=== PATIENT | male | born 1940 | race Caucasian/White ===

== ENCOUNTER → 2019-08-15 | Outpatient (CLI) | payer MEDICARE, SELFPAY ==
[2016-11-20 10:44] VITALS: BMI 23.9
[2019-08-15 12:45] LABS: Cholesterol 199 mg/dL (200); Glucose 99 mg/dL (74-106); High Density Lipoprotein 68 mg/dL; Triglycerides 75 mg/dL; Very Low Density Lipoprotein 15 mg/dL (5-40)
== END | disposition home or self-care (01) ==
PROVIDERS: Visit Provider Family Medicine
DX: Z82.49 Family history of ischemic heart disease and other diseases of the circulatory system (principal)
CPT/HCPCS: 36415; 80061; 82947

== ENCOUNTER → 2020-04-18 09:44 | Outpatient (CLI) | payer MEDICARE, SELFPAY ==
[2016-11-20 10:44] VITALS: BMI 23.9
[2020-04-18 12:25] LABS: Absolute Lymphocyte Count 1.24 X10^3/uL (0.83-4.51); Absolute Neutrophil Count 2.4 X10^3/uL (2.0-7.7); Basophil# 0.04 X10^3/uL; Eosinophil# 0.09 X10^3/uL; Eosinophils% 2.2 % (0-5); Hematocrit 40.8 % (40-54); Hemoglobin 13.1 g/dL (13.0-16.5); Lymphocyte # 1.24 X10^3/ul (4.0); Lymphocyte % 30.5 % (19-41); Mean Corp Hgb Conc 32.1 g/dL (32-36); Mean Corpuscular Hgb 31.1 pg (27.0-32.0); Mean Corpuscular Volume 96.9 fL (80-94); Mean Platelet Vol. 11.9 fl (6.2-12.0); Monocyte# 0.28 X10^3/uL; Monocyte% 6.9 % (0-10); NRBC Flagged by Analyzer 0 % (0-5); Neutrophil % 59.2 % (47-70); Platelet Count 197 K/mm3 (150-450); RBC Distribution Width CV 13.4 % (11.6-14.6); Red Blood Count 4.21 M/mm3 (4.6-6.2); White Blood Count 4.1 K/mm3 (4.4-11.0)
[2020-04-18 13:25] LABS: AST(SGOT) 15 U/L (15-37); Alanine Aminotransfer ALT/SGPT 17 U/L (16-61); Albumin, Serum 3.6 g/dL (3.2-5.0); Alkaline Phosphatase 60 U/L (45-117); Anion Gap 4 (5-15); BUN 16 mg/dL (7-18); BUN/Creat Ratio 16.5 RATIO (10-20); Calcium,Total 8.6 mg/dL (8.5-10.1); Chloride 105 mmol/L (98-107); Creatinine, Serum 0.97 mg/dL (0.70-1.30); EST Glomerular Filtration Rate 80 mL/min (>60); Est Glom Filt Rate - Afr Amer 96 mL/min (>60); Globulin 3.5 g/dL (2.2-4.2); Glucose 74 mg/dL (74-106); PSA,Total - Annual Screen 2.62 ng/mL (0.00-4.00); Potassium 4.5 mmol/L (3.5-5.1); Protein, Total 7.1 g/dL (6.4-8.2); Sodium Level 137 mmol/L (136-145); T4 Free Direct 1.02 ng/dL (0.76-1.46); Thyroid Stim Hormone (TSH) 1.62 uIU/mL (0.358-3.74)
[2020-04-20 00:03] LABS: Hemoglobin A1c 5.5 % (3.8-5.6)
== END ==
PROVIDERS: PCP Family Medicine; Visit Provider Family Medicine
DX: R63.4 Abnormal weight loss (principal); Z12.5 Encounter for screening for malignant neoplasm of prostate; Z86.718 Personal history of other venous thrombosis and embolism
CPT/HCPCS: 36415; 80053; 83036; 84153; 84439; 84443; 85025; G0103

== ENCOUNTER 2020-05-30 05:20 | Day surgery (SDC) | payer MEDICARE, SELFPAY ==
[2020-05-24 08:30] VITALS: BMI 22.4
[2020-05-30] VITALS (7 sets, daily range): BP systolic 99–119; BP diastolic 60–70; PULSE 63–71; RESP 16–18; TEMP 36.3–36.8; O2SAT 97–100; BMI 23.5
--- NOTE | 2020-05-30 05:30 | EKG12_ITS ---
Test Reason : PRE OP Blood Pressure : / mmHG Vent. Rate : 065 BPM Atrial Rate : 065 BPM P-R Int : 172 ms QRS Dur : 104 ms QT Int : 404 ms P-R-T Axes : 057 072 062 degrees QTc Int : 420 ms Normal sinus rhythm Normal ECG No previous ECGs available Confirmed by NORA MARKHAM, LAURA ([id number]), news copy editor CHALO ELLER ([id number]) on 06/01/2020 11:31:24 AM Referred By: Curtis Mchugh Confirmed By:LAURA MELENDEZ MD
--- NOTE | 2020-05-30 05:31 | HP.PCM_ITS ---
Problem List (1) Rectal bleeding Status: Acute (2) Weight loss Status: Acute History and Physical Date of Admission: 05/30/20 Intake Visit Reasons: RIGHT INGUINAL HERNIA Chief Complaint: right inguinal hernia Home Health Occupational Therapist Required: No Is patient in pain?: No Allergies No Known Allergies Allergy (Verified 05/24/20 08:32) Medications tamsulosin 0.4 mg capsule 0.4 mg PO DAILY #30 cap 05/24/20 [Rx Confirmed 05/24/20] [facility] Medical History (Updated 05/24/20 @ 09:[address] Ap Woodruff MD) Rectal bleeding (Acute) Weight loss (Acute) Hemorrhoid (Acute) Right inguinal hernia (Acute) DVT (deep venous thrombosis) (Acute ~2003) Osteoarthritis (Acute) Surgical History History of circumcision (Acute) History of vasectomy (Acute) History of meniscectomy of right knee (Acute) History of bilateral cataract extraction (Acute) Family History (Updated 05/24/20 @ 08:33 by Yokasta Crowe) Mother Deepti Gehrig disease Sister Heart disease Myocardial infarction Brother Myocardial infarction Heart disease Father Cancer bone Social History (Updated 05/24/20 @ 09:[address] Ap Woodruff MD) Smoking Status: Former smoker HPI HPI HPI: SEBASTIEN TSAI, is a 79 M who presents to the office today for who is referred by Dr. Curtis Mchugh today for surgical consultation regarding 2 separate issues. 1 is an episode of acute rectal bleeding and the second is a newly symptomatic suspected right inguinal hernia. A written copy of my surgical consult and recommendations will return to Dr. Curtis Mchugh Mr. Tsai is a very pleasant 79-year-old gentleman. For about 3 weeks he has noticed a tenderness and bulge in the right groin area. It is also of note that he is recently had an episode of rectal bleeding. He has never had a colonoscopy. He notes couple months ago over a 1 month period of time he had a 15 pound weight loss of undetermined etiology. He states that he is stabilized since that time. He denies indigestion or history of peptic ulcer disease. He denies abdominal pain albeit for the pressure sensation of the right lower quadrant directly where there is a inguinal bulge. He denies family history of colon cancer or colon polyps. He states that he otherwise enjoys very good health. He has had a remote right lower extremity deep venous thrombosis that occurred postoperatively after right knee implant. He has not had any additional problems since that time. He remains very active and enjoys a good quality of life. He has nocturia sometimes 1-3 times nightly. HPI HPI HPI: SEBASTIEN TSAI, is a 79 M who presents to the office today for ROS General General: No weight change, appetite, fatigue, colon cancer, breast cancer or weakness HEENT HEENT: No difficulty swallowing, eye injury, eye surgery, swollen glands or hoarseness Endo Endocrine: No thyroid disease, diabetes mellitus, thyroid cancer, Hair loss, heat intolerance or cold intolerance Cardio Cardiovascular: No murmur, pacemaker, heart disease, atrial fibrillation, high blood pressure, heart attack, heart stent, palpitations, shortness of breat with exertion or chest pain Psych Psychiatric: No depression, anxiety or hearing voices Resp Respiratory: No shortness of breath, No sleep apnea, No cough, No COPD, No asthm a, No emphysema, No wheezing Gastro Gastrointestinal: Yes abdominal pain, No nausea or vomiting, No diarrhea, No constipation, No blood in stool, No acid reflux, Yes hemorrhoids, No ulcers, No gallbladder problem, No black,tarry stools [place] Hematologic: No blood thinners, No blood disorders, No bleeding, No anemia, No blood clots Neuro Neurologic: No weakness Exam Const General: cooperative, healthy appearing, comfortable, no acute distress Nutritional Appearance: underweight Orientation: alert, awake Other: Patient appears to have had significant weight loss. His pant belt is tightened and closed seem loose on him HENMT Head: normal to inspection Eyes General: appearance normal, both eyes and all related structures Resp Effort & Inspection: normal respiratory effort Auscultation: clear to auscultation bilaterally Cardio Rate: regular rate Rhythm: regular rhythm Heart Sounds: no murmurs GI Palpation: soft, no hepatosplenomegaly Other: No hepatosplenomegaly, no focal tenderness, normal bowel sounds, not pulsatile or expansile Other: Testicles are descended, no mass, slight tenderness of the right testicle however, right groin bulge seen best with upright posture. Tenderness to palpation of the area but reducibility Musc Cervical Spine: normal cervical lordosis Skin General: no rashes or lesions noted Neuro Cognition: normal cognition Extrem Other: Mild varicose changes right lower extremity Psych Affect: normal affect Assessment & Plan Problems 1. Right inguinal hernia K40.90 2. Weight loss R63.4 3. Rectal bleeding K62.5 Plan Very pleasant 79-year-old gentleman. 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 Issues at hand include what appears to be recently significant weight loss of 15 pounds without etiology. Single episode of rectal bleeding felt to be possibly secondary to hemorrhoids but no previous history of colonoscopy. Right inguinal hernia and right groin tenderness noted even when the patient is at rest and sitting. I recommend him a colonoscopy with possible biopsy or polypectomy as indicated and I discussed technique, benefit, risk and alternatives. Subsequent to that I recommend him a laparoscopic right inguinal hernia repair with mesh. He has a very high quality of life and I believe that this will maximize at benefit. In addition he is aware of technique, benefit, risk of alternatives. No guarantees of success of been offered. Because of his nocturia I recommend initiating tamsulosin 0.4 mg orally nightly. This will be initiated preoperatively. We additionally discussed COVID-19. Currently the [facility] still reporting a relatively low local incidence. I anticipate outpatient treatment for the patient on both colonoscopy and the laparoscopic right inguinal herniorrhaphy. He has had an opportunity to ask and have questions answered. We will proceed with trying to assist with identifying a potential source for otherwise unexplained weight loss as well as identifying potential source for rectal bleeding and then subsequently repairing a symptomatic right inguinal hernia. Copy: Dr. Curtis Woodruff M.D., F.A.C.S. Orders Orders: Colonoscopy Today Medications New: tamsulosin (Flomax) 0.4 mg PO DAILY 30 caps 0RF Coding Level of Care Code 61764 Diagnoses Right inguinal hernia K40.90 Weight loss R63.4 Rectal bleeding K62.5 I have re-examined the patient. There are no clinical changes since date of exam. Procedure Criteria Procedure Type: Elective COVID Risk Discussion: The surgeon/proceduralist and patient have discussed in detail the risk of exposure to and/or potential harm posed by the COVID-19 virus with having a surgery/procedure at this time versus the risk of delaying the surgery/procedure. It is not possible to know either the risk of delaying the surgery or procedure or chance of getting an infection with perfect accuracy, but a joint decision was made between the patient and the surgeon/proceduralist to proceed at this time with the scheduled surgery/procedure as indicated on the consent form.
[2020-05-30] MEDS: Lactated Ringers 1,000 ML 100 ML IV (06:03)
--- NOTE | 2020-05-30 06:30 | COLBX_PTH ---
PATIENT: SEBASTIEN SAMAYOA LOC: EN U#:[id number] AGE/SX: 79/M ROOM: RE05/30/[address]: Dr. Ap Woodruff MD : 1940 BED: DIS: 05/30/2020 SPEC #: [id number] RECD: 05/30/20 12:13 STATUS: BHAVANI CHEKO #: [id number] SHAHRAM: 05/30/20 06:[address]: Ap Woodruff DEPT: SURGICAL PATHOLOGY RECD BY: Selma Baca ENTERED: 05/30/20 13:34 SP TYPE: COLON BX CLEMENT DR: Dr. Curtis Mchugh MD Tissues: A - Transverse colon B - Descending colon Procedures: Surgery Specimen Level IV HEADER OPERATION: Colonoscopy (MAC) PRE-OP DIAGNOSIS: Rectal bleeding TISSUE SUBMITTED: A - Mid transverse polyp, B - Descending polyp MICROSCOPIC DIAGNOSIS A. Mid transverse colon polyp, biopsy: Fragments of tubular adenoma. B. Descending colon polyp, biopsy: Tubular adenoma. Fragments of fecal material. NICHOLAS:gustavo 06/01/20 MICROSCOPIC DESCRIPTION Slides are reviewed. GROSS DESCRIPTION A - Received in fixative is one container labeled with the patient's name and designated mid transverse polyp. The specimen consists of multiple irregular fragments of light flores soft tissue that in aggregate measure 1.5 x 1 x 0.3 cm. The specimen is totally submitted in one cassette. B - Received in fixative is one container labeled with the patient's name and designated descending polyp. The specimen consists of a piece of flores-pink polyp measuring 0.5 x 0.5 x 0.3 cm. Multiple fragments of fecal material are also noted. The entire specimen is submitted in one cassette. / NICHOLAS:gustavo 05/31/20 TC:1 CPT: 28111 x2
--- NOTE | 2020-05-30 06:57 | OP.COLON_ITS ---
Patient Name: Salazar Tsai Procedure Date: 05/30/2020 6:14 AM Date of : 1940 Age: 79 Procedure: Colonoscopy Indications: Rectal bleeding Providers: Ap Woodruff MD Referring MD: Curtis Mchugh Medicines: See the Anesthesia note for documentation of the administered medications Patient Profile: Last Colonoscopy: none. The patient's first colonoscopy is today. Complications: No immediate complications. Procedure: Pre-Anesthesia Assessment: - Prior to the procedure, a History and Physical was performed, and patient medications and allergies were reviewed. The patient's tolerance of previous anesthesia was also reviewed. The risks and benefits of the procedure and the sedation options and risks were discussed with the patient. All questions were answered, and informed consent was obtained. Prior Anticoagulants: The patient has taken no previous anticoagulant or antiplatelet agents. ASA Grade Assessment: II - A patient with mild systemic disease. After reviewing the risks and benefits, the patient was deemed in satisfactory condition to undergo the procedure. After I obtained informed consent, the scope was passed under direct vision. Throughout the procedure, the patient's blood pressure, pulse, and oxygen saturations were monitored continuously. The colonoscope was introduced through the anus and advanced to the cecum, identified by appendiceal orifice and ileocecal valve. The colonoscopy was performed without difficulty. The patient tolerated the procedure well. The quality of the bowel preparation was good. The ileocecal valve and the appendiceal orifice were photographed. Scope In: 6:28:49 AM Scope Withdrawal Time 0 hours 12 minutes 39 seconds Scope Out: 6:50:02 AM Total Procedure Duration Time 0 hours 21 minutes 13 seconds Findings: The digital rectal exam findings include non-thrombosed internal hemorrhoids and internal hemorrhoids that prolapse with straining, but require manual replacement into the anal canal (Grade III). Pertinent negatives include normal prostate (size, shape, and consistency). A 9 mm polyp was found in the mid transverse colon. The polyp was semi-sessile. The polyp was removed with a hot snare. Resection and retrieval were complete. A 8 mm polyp was found in the descending colon. The polyp was semi-sessile. The polyp was removed with a hot snare. Resection and retrieval were complete. Multiple diverticula were found in the sigmoid colon and descending colon. The colon (entire examined portion) was moderately tortuous. Advancing the scope required using manual pressure. Impression: - Non-thrombosed internal hemorrhoids and internal hemorrhoids that prolapse with straining, but require manual replacement into the anal canal (Grade III) found on digital rectal exam. - One 9 mm polyp in the mid transverse colon, removed with a hot snare. Resected and retrieved. - One 8 mm polyp in the descending colon, removed with a hot snare. Resected and retrieved. - Diverticulosis in the sigmoid colon and in the descending colon. - Tortuous colon. Recommendation: - Discharge patient to home. - Resume previous diet. - Continue present medications. - Repeat colonoscopy in 5 years for surveillance based on pathology results. - Telephone my office for pathology results in 1 week. Procedure Code(s): --- Professional --- 67664, Colonoscopy, flexible; with removal of tumor(s), polyp(s), or other lesion(s) by snare technique Diagnosis Code(s): --- Professional --- K64.2, Third degree hemorrhoids D12.3, Benign neoplasm of transverse colon (hepatic flexure or splenic flexure) D12.4, Benign neoplasm of descending colon K62.5, Hemorrhage of anus and rectum K57.30, Diverticulosis of large intestine without perforation or abscess without bleeding Q43.8, Other specified congenital malformations of intestine CPT copyright 2017 [employer]. All rights reserved. The codes documented in this report are preliminary and upon shagger review may be revised to meet current compliance requirements. Ap Woodruff MD 05/30/2020 6:57:04 AM This report has been signed electronically. Number of Addenda: 0 Note Initiated On: 05/30/2020 6:14 AM
--- NOTE | 2020-05-30 06:57 | OP.CCLET_ITS ---
05/30/2020 Curtis Mchugh Re : Colonoscopy procedure for Salazar Jamesmaegan Mchugh This procedure was performed on Saturday, May 30, 2020. My impressions and recommendations are as follows: Impressions : - Non-thrombosed internal hemorrhoids and internal hemorrhoids that prolapse with straining, but require manual replacement into the anal canal (Grade III) found on digital rectal exam. - One 9 mm polyp in the mid transverse colon, removed with a hot snare. Resected and retrieved. - One 8 mm polyp in the descending colon, removed with a hot snare. Resected and retrieved. - Diverticulosis in the sigmoid colon and in the descending colon. - Tortuous colon. Recommendations : - Discharge patient to home. - Resume previous diet. - Continue present medications. - Repeat colonoscopy in 5 years for surveillance based on pathology results. - Telephone my office for pathology results in 1 week. My findings are described in the full procedure note, which is enclosed. If I can be of further assistance, please feel free to contact me at Doctor phone number(s): Work: . Sincerely, Ap Woodruff MD 05/30/2020 6:57:04 AM This report has been signed electronically.
== END 2020-05-30 08:06 | disposition home or self-care (01) ==
LOC: EN 05:20 → AC 05:21
PROVIDERS: PCP Family Medicine; Referring Provider Family Medicine; Visit Provider Surgery
PROC: 0DJD8ZZ Inspection of Lower Intestinal Tract, Via Natural or Artificial Opening Endoscopic (ICD-10-PCS; CPT 45378; principal; 2020-05-30 06:25)
DX: D12.3 Benign neoplasm of transverse colon (principal); D12.4 Benign neoplasm of descending colon; K57.30 Diverticulosis of large intestine without perforation or abscess without bleeding; K64.2 Third degree hemorrhoids; K40.90 Unilateral inguinal hernia, without obstruction or gangrene, not specified as recurrent; M19.90 Unspecified osteoarthritis, unspecified site; Z87.891 Personal history of nicotine dependence; Z79.899 Other long term (current) drug therapy; Z86.718 Personal history of other venous thrombosis and embolism; Z20.828 Contact with and (suspected) exposure to other viral communicable diseases
CPT/HCPCS: 45385; 87426; 88305; 93005; C9803; J7120; J2405

== ENCOUNTER 2020-06-04 07:28 | Day surgery (SDC) | payer MEDICARE, SELFPAY ==
[2020-05-24 08:30] VITALS: BMI 22.4
[2020-05-30 05:46] VITALS: BMI 23.5
[2020-05-30 08:19] LABS: Hematocrit 36.3 % (40-54); Hemoglobin 11.6 g/dL (13.0-16.5); Mean Corpuscular Hgb 30.9 pg (27.0-32.0); Mean Corpuscular Volume 96.5 fL (80-94); Mean Platelet Vol. 10.9 fl (6.2-12.0); Platelet Count 157 K/mm3 (150-450); RBC Distribution Width CV 13.3 % (11.6-14.6); RBC Distribution Width SD 48.1 fl (35.1-43.9); Red Blood Count 3.76 M/mm3 (4.6-6.2); White Blood Count 3.7 K/mm3 (4.4-11.0)
[2020-05-30 08:35] LABS: Anion Gap 3 (5-15); BUN 10 mg/dL (7-18); BUN/Creat Ratio 10.1 RATIO (10-20); Calcium,Total 8.7 mg/dL (8.5-10.1); Chloride 106 mmol/L (98-107); Creatinine, Serum 0.99 mg/dL (0.70-1.30); EST Glomerular Filtration Rate 78 mL/min (>60); Est Glom Filt Rate - Afr Amer 94 mL/min (>60); Glucose 102 mg/dL (74-106); Potassium 4.1 mmol/L (3.5-5.1); Sodium Level 138 mmol/L (136-145)
[2020-06-04] VITALS (7 sets, daily range): BP systolic 114–132; BP diastolic 56–77; PULSE 61–77; RESP 14–18; TEMP 36.1–36.8; O2SAT 96–100; BMI 23.8
[2020-06-04] MEDS: Lactated Ringers 1,000 ML 100 ML IV ×2 (08:19→10:15)
--- NOTE | 2020-06-04 08:39 | HP.PCM_ITS ---
Problem List (1) Right inguinal hernia Status: Acute History and Physical Date of Admission: 06/04/20 Intake Visit Reasons: RIGHT INGUINAL HERNIA Chief Complaint: right inguinal hernia Distributor Of Directories Required: No Is patient in pain?: No Allergies No Known Allergies Allergy (Verified 05/24/20 08:32) Medications tamsulosin 0.4 mg capsule 0.4 mg PO DAILY #30 cap 05/24/20 [Rx Confirmed 05/24/20] [facility] Medical History (Updated 05/24/20 @ 09:[address] Ap Woodruff MD) Rectal bleeding (Acute) Weight loss (Acute) Hemorrhoid (Acute) Right inguinal hernia (Acute) DVT (deep venous thrombosis) (Acute ~2003) Osteoarthritis (Acute) Surgical History History of circumcision (Acute) History of vasectomy (Acute) History of meniscectomy of right knee (Acute) History of bilateral cataract extraction (Acute) Family History (Updated 05/24/20 @ 08:33 by Yokasta Crowe) Mother Deepti Gehrig disease Sister Heart disease Myocardial infarction Brother Myocardial infarction Heart disease Father Cancer bone Social History (Updated 05/24/20 @ 09:[address] Ap Woodruff MD) Smoking Status: Former smoker HPI HPI HPI: SEBASTIEN TSAI, is a 79 M who presents to the office today for who is referred by Dr. Curtis Mchugh today for surgical consultation regarding 2 separate issues. 1 is an episode of acute rectal bleeding and the second is a newly symptomatic suspected right inguinal hernia. A written copy of my surgical consult and recommendations will return to Dr. Curtis Mchugh Mr. Tsai is a very pleasant 79-year-old gentleman. For about 3 weeks he has noticed a tenderness and bulge in the right groin area. It is also of note that he is recently had an episode of rectal bleeding. He has never had a colonoscopy. He notes couple months ago over a 1 month period of time he had a 15 pound weight loss of undetermined etiology. He states that he is stabilized since that time. He denies indigestion or history of peptic ulcer disease. He denies abdominal pain albeit for the pressure sensation of the right lower quadrant directly where there is a inguinal bulge. He denies family history of colon cancer or colon polyps. He states that he otherwise enjoys very good health. He has had a remote right lower extremity deep venous thrombosis that occurred postoperatively after right knee implant. He has not had any additional problems since that time. He remains very active and enjoys a good quality of life. He has nocturia sometimes 1-3 times nightly. HPI HPI HPI: SEBASTIEN TSAI, is a 79 M who presents to the office today for ROS General General: No weight change, appetite, fatigue, colon cancer, breast cancer or weakness HEENT HEENT: No difficulty swallowing, eye injury, eye surgery, swollen glands or hoarseness Endo Endocrine: No thyroid disease, diabetes mellitus, thyroid cancer, Hair loss, heat intolerance or cold intolerance Cardio Cardiovascular: No murmur, pacemaker, heart disease, atrial fibrillation, high blood pressure, heart attack, heart stent, palpitations, shortness of breat with exertion or chest pain Psych Psychiatric: No depression, anxiety or hearing voices Resp Respiratory: No shortness of breath, No sleep apnea, No cough, No COPD, No asthma, No emphysema, No wheezing Gastro Gastrointestinal: Yes abdominal pain, No nausea or vomiting, No diarrhea, No constipation, No blood in stool, No acid reflux, Yes hemorrhoids, No ulcers, No gallbladder problem, No black,tarry stools [place] Hematologic: No blood thinners, No blood disorders, No bleeding, No anemia, No blood clots Neuro Neurologic: No weakness Exam Const General: cooperative, healthy appearing, comfortable, no acute distress Nutritional Appearance: underweight Orientation: alert, awake Other: Patient appears to have had significant weight loss. His pant belt is tightened and closed seem loose on him HENMT Head: normal to inspection Eyes General: appearance normal, both eyes and all related structures Resp Effort & Inspection: normal respiratory effort Auscultation: clear to auscultation bilaterally Cardio Rate: regular rate Rhythm: regular rhythm Heart Sounds: no murmurs GI Palpation: soft, no hepatosplenomegaly Other: No hepatosplenomegaly, no focal tenderness, normal bowel sounds, not pulsatile or expansile Other: Testicles are descended, no mass, slight tenderness of the right testicle however, right groin bulge seen best with upright posture. Tenderness to p alpation of the area but reducibility Musc Cervical Spine: normal cervical lordosis Skin General: no rashes or lesions noted Neuro Cognition: normal cognition Extrem Other: Mild varicose changes right lower extremity Psych Affect: normal affect Assessment & Plan Problems 1. Right inguinal hernia K40.90 2. Weight loss R63.4 3. Rectal bleeding K62.5 Plan Very pleasant 79-year-old gentleman. 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 Issues at hand include what appears to be recently significant weight loss of 15 pounds without etiology. Single episode of rectal bleeding felt to be possibly secondary to hemorrhoids but no previous history of colonoscopy. Right inguinal hernia and right groin tenderness noted even when the patient is at rest and sitting. I recommend him a colonoscopy with possible biopsy or polypectomy as indicated and I discussed technique, benefit, risk and alternatives. Subsequent to that I recommend him a laparoscopic right inguinal hernia repair with mesh. He has a very high quality of life and I believe that this will maximize at benefit. In addition he is aware of technique, benefit, risk of alternatives. No guarantees of success of been offered. Because of his nocturia I recommend initiating tamsulosin 0.4 mg orally nightly. This will be initiated preoperatively. We additionally discussed COVID-19. Currently the [facility] still reporting a relatively low local incidence. I anticipate outpatient treatment for the patient on both colonoscopy and the laparoscopic right inguinal herniorrhaphy. He has had an opportunity to ask and have questions answered. We will proceed with trying to assist with identifying a potential source for otherwise unexplained weight loss as well as identifying potential source for rectal bleeding and then subsequently repairing a symptomatic right inguinal hernia. Copy: Dr. Curtis Woodruff M.D., F.A.C.S. Orders Orders: Colonoscopy Today Medications New: tamsulosin (Flomax) 0.4 mg PO DAILY 30 caps 0RF Coding Level of Care Code 83651 Diagnoses Right inguinal hernia K40.90 Weight loss R63.4 Rectal bleeding K62.5 The patient has successfully undergone a colonoscopy. 2 small tubular adenomas were removed. Grade 3 internal hemorrhoids identified and likely the source of the patient's rectal bleeding. They were fortunately not bleeding at the time of this colonoscopy. The patient presents now for a laparoscopic right inguinal hernia repair with mesh. His health has remained constant. He is aware of technique, benefit, risk, alternatives. He has had an opportunity to ask and have questions answered. We will proceed as noted. Ap Woodruff M.D., F.A.C.S. Procedure Criteria Procedure Type: Elective COVID Risk Discussion: The surgeon/proceduralist and patient have discussed in detail the risk of exposure to and/or potential harm posed by the COVID-19 virus with having a surgery/procedure at this time versus the risk of delaying the surgery/procedure. It is not possible to know either the risk of delaying the surgery or procedure or chance of getting an infection with perfect accuracy, but a joint decision was made between the patient and the surgeon/proceduralist to proceed at this time with the scheduled surgery/procedure as indicated on the consent form.
[2020-06-04] MEDS: Cefazolin 2 GM in 0.9% Normal Saline 100 ML IV (09:14)
--- NOTE | 2020-06-04 09:40 | HERN_PTH ---
PATIENT: SEBASTIEN SAMAYOA LOC: [facility] [place] U#:[id number] AGE/SX: 79/M ROOM: RE06/04/[address]: Dr. Ap Woodruff MD : 1940 BED: DIS: 06/04/2020 SPEC #: [id number] RECD: 06/04/20 10:37 STATUS: BHAVANI REShawn #: [id number] SHAHRAM: 06/04/20 09:[address]: Ap Woodruff DEPT: SURGICAL PATHOLOGY RECD BY: Selma Baca ENTERED: 06/04/20 11:41 SP TYPE: Hernia OTHR DR: Dr. Curtis Mchugh MD Tissues: HERNIA Procedures: Surgery Specimen Level II HEADER OPERATION: Laparoscopic inguinal hernia repair PRE-OP DIAGNOSIS: Right inguinal hernia; umbilical hernia TISSUE SUBMITTED: Hernia sac MICROSCOPIC DIAGNOSIS Soft tissue of right inguinal region, excision: Consistent with hernia sac with minimal chronic inflammation. AM:gustavo 06/05/20 MICROSCOPIC DESCRIPTION Slides are reviewed. GROSS DESCRIPTION Received in fixative is one container labeled with the patient's name and designated hernia sac. The specimen consists of a piece of flores soft tissue measuring 0.6 x 0.5 x 0.2 cm. The entire specimen is submitted in one cassette. / SJ:gustavo 06/04/20 TC:3 CPT: 19346
[2020-06-04] MEDS: Bupivacaine Mpf 0.5% 30 ML VIAL (10:15)
--- NOTE | 2020-06-04 10:19 | PCM.DC.GS ---
Discharge Diet: Light diet - advance as tolerated - if you have questions about your diet instructions, please talk to you doctor. Discharge Activity: May Not Drive - for 3-5 days or while taking narcotic pain medicine. May shower in (days): 1 Lifting Restrictions: 10 pounds Call your doctor if your incision/area has: Continuous Slow Oozing, Sudden Increased Bleeding, Increased Pain/ Swelling, Increased Redness, Foul Smelling Discharge Call your doctor if you observe: Fever of 101 or Higher Suture Line Care: Avoid Pulling/Pushing, Avoid Pinching/Bending Additional Dressing/Incision Instructions:: Change or remove dressing in 4 days. Leave steri-strips in place for 1 week. Allergies/Adverse Reactions: Allergies No Known Allergies Allergy (Verified 05/30/20 05:45) Medications to take at Discharge Tamsulosin HCl 0.4 mg PO QHS 05/25/20 Hydrocodone Bitart/Apap 5-325 [[place] 5MG-325MG] 1 tablet PO Q6H PRN PRN 2 Days #8 tablet 06/04/20 The following prescriptions were given: Hydrocodone Bitart/Apap 5-325 [[place] 5MG-325MG] 1 tablet PO Q6H PRN PRN 2 Days #8 tablet PRN Reason: Pain Transmission Status: Received by [id number] Orders to be completed after discharge: 12 Lead EKG [[facility]] Time Frame: 05/30/20, Location: None Selected Primary Care Physician: Curtis Mchugh MD [Primary Care Provider] - Test Results: Test results from this visit will be discussed in further detail at your follow-up appointment, if applicable. Please Follow Up With: Ap Woodruff MD - [phone] When: Call for appt. in 10 days, May be phone, virtual, or onsite
--- NOTE | 2020-06-04 10:23 | OP.PCM_ITS ---
Problem List (1) Right inguinal hernia Status: Acute Report of Operation Date of Procedure: 06/04/20 Pre-Operative Diagnosis: Indirect right inguinal hernia Post-Operative Diagnosis: Indirect right inguinal hernia, umbilical hernia Surgery/Procedure Performed:: Laparoscopic right inguinal herniorrhaphy, Bard 3D max large right mesh: Lot number [id number]. Reference #[id number]. Expiry date 10/31/2024. Umbilical herniorrhaphy Description of Surgical Findings:: Timeout and informed consent was obtained. 79-year-old gent was taken the operating placed on the table underwent general trach intubation esthesia. Ancef 2 g were given intravenously. The abdomen sterilely prepped and draped. 0.5% Marcaine was used as a local anesthetic. Skin sites were preanesthetized. A vertical incision made in the umbilicus and a palpable umbilical hernia encountered. The sac and contents were sharply transected. Specimen the sac submitted as pathology. Holding sutures of 0 Vicryl placed. A 10 mm trocar was inserted. The abdomen was insufflated with CO2 to a pressure of 10 mmHg pressure. Under direct visitation 5 mm ports were placed on the right and left lower quadrants. The left groin appeared to be solid and intact. Appear to be a very small indirect defect on the right. A ilioinguinal nerve block was performed on the right under laparoscopic visualization. The peritoneum sup erior lateral to the internal ring was incised carried medially. Direct indirect and femoral areas dissected free. A Bard 3D large max was placed on the right and secured there with secure strap laterally superiorly and medially. Good coverage was achieved. The peritoneum was then approximated to itself using secure strap and a hemolock clip. Complete obliteration to the mesh was achieved. Trochars were removed after air was allowed to deflate through an antiviral valve. The umbilical hernia was closed with several simple sutures of 0 Nurolon. Skin edges approximated opted for Monocryl subdermal stitches. Steri-Strips Telfa and OpSite dressings applied. Sponge and instrument and needle counts were reported to the surgeon to be correct. Specimens hernia sac. Drains none. Blood loss minimal. The patient was taken to recovery room in satisfactory edition without apparent complication Ap Woodruff M.D., F.A.C.S. Type of Anesthesia:: General Anesthesiologist: Kwame Ayala
[2020-06-04] MEDS: Acetaminophen 325 MG Tablet 650 MG PO (12:27)
== END 2020-06-04 13:03 | disposition home or self-care (01) ==
LOC: SDC 07:29 → AC 07:29
PROVIDERS: PCP Family Medicine; Referring Provider Family Medicine; Visit Provider Surgery
PROC: (CPT 49650; principal; 2020-06-04 09:20)
DX: K40.90 Unilateral inguinal hernia, without obstruction or gangrene, not specified as recurrent (principal); K42.9 Umbilical hernia without obstruction or gangrene; M19.90 Unspecified osteoarthritis, unspecified site; Z86.718 Personal history of other venous thrombosis and embolism; Z87.891 Personal history of nicotine dependence
CPT/HCPCS: 49585; 49650; 36415; 80048; 85027; 88302; J7120; C1781; J2405

== ENCOUNTER → 2020-12-31 10:36 | Outpatient (CLI) | payer MEDICARE, SELFPAY ==
[2020-12-31 12:25] LABS: Thyroid Stim Hormone (TSH) 1.69 uIU/mL (0.358-3.74)
== END ==
LOC: MTLAB 10:38
PROVIDERS: PCP Family Medicine; Referring Provider Family Medicine; Visit Provider Family Medicine
DX: I95.9 Hypotension, unspecified (principal); E87.5 Hyperkalemia
CPT/HCPCS: 36415; 82533; 84439; 84443

== ENCOUNTER 2022-11-18 17:28 | Emergency (ER) | payer MEDICARE, SELFPAY ==
[2022-11-18 17:29] VITALS: BP 209/107; PULSE 79; RESP 18; TEMP 36.8; O2SAT 99; BMI 24.5
--- NOTE | 2022-11-18 17:48 | EKG12_ITS ---
Test Reason : REPEAT CP Blood Pressure : / mmHG Vent. Rate : 067 BPM Atrial Rate : 067 BPM P-R Int : 178 ms QRS Dur : 094 ms QT Int : 394 ms P-R-T Axes : 056 059 053 degrees QTc Int : 416 ms Normal sinus rhythm Normal ECG Confirmed by NORA MARKHAM, LAURA ([id number]), editorial director CHALO ELLER ([id number]) on 11/20/2022 9:51:44 AM Referred By: TL Confirmed By:LAURA MELENDEZ MD
--- NOTE | 2022-11-18 17:55 | RAD_ITS ---
INDICATION: chest pain EXAMINATION/TECHNIQUE: X-RAY - XR Chest 1 View COMPARISON: None. FINDINGS: The lungs are clear. Tortuous and calcified thoracic aorta. The heart is not enlarged. No pleural effusion or pneumothorax. No acute osseous abnormalities. RAD/Chest 1 View (Portable) IMPRESSION: No acute radiographic abnormalities. Electronically Signed: Tulio Perera MD at 18:44 EDT ,
[2022-11-18] MEDS: Aspirin 81 MG TAB.CHEW 324 MG PO (17:56)
[2022-11-18 18:02] LABS: Absolute Lymphocyte Count 1.96 X10^3/uL (0.83-4.51); Absolute Neutrophil Count 2.9 X10^3/uL (2.0-7.7); Basophil# 0.04 X10^3/uL; Basophil% 0.7 % (0-1); Eosinophil# 0.16 X10^3/uL; Eosinophils% 2.9 % (0-5); Hemoglobin 13.3 g/dL (13.0-16.5); Lymphocyte # 1.96 X10^3/ul (0.83-4.51); Lymphocyte % 35.5 % (19-41); Mean Corp Hgb Conc 32.4 g/dL (32-36); Mean Corpuscular Hgb 31.5 pg (27.0-32.0); Mean Corpuscular Volume 97.2 fL (80-94); Mean Platelet Vol. 10.9 fl (6.2-12.0); Monocyte# 0.42 X10^3/uL; Monocyte% 7.6 % (0-10); NRBC Flagged by Analyzer 0 % (0-5); Neutrophil # 2.93 X10^3/uL (2.7-7.7); Neutrophil % 53.1 % (47-70); Platelet Count 206 K/mm3 (150-450); RBC Distribution Width SD 46.7 fl (35.1-43.9); Red Blood Count 4.22 M/mm3 (4.6-6.2); White Blood Count 5.5 K/mm3 (4.4-11.0)
--- NOTE | 2022-11-18 18:10 | ED.VIS.CHEST ---
HPI History of Present Illness Chief Complaint: Chest Pain Informant: patient and spouse/S.O. Narrative Narrative: Presents feels of chest discomfort with bubbles symptoms in his left chest while sitting and half hour prior to arrival. No pressure no pain no paresthesias. No shortness of breath no nausea no diaphoresis. He states then noticed blood pressure go up. No history of hypertension diabetes hyperlipidemia tobacco. Couple members with MIs however not at a young age. Denies recent cough. Denies history of similar. 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 Prior Similar Symptoms: No CVD Risk Factors: Negative for Hypertension, Diabetes, Hypercholesterolemia, Family History 1' </=55 or Smoking PE Risk Factors: Positive for Prior DVT or PE; Negative for Recent Travel/Surgery or Recent Immobilization [facility] Medical History (Updated 11/18/22 @ 21:[address] Jason Wilkerson DO) DVT (deep venous thrombosis) (~2003) Hemorrhoid Osteoarthritis Rectal bleeding Right inguinal hernia Umbilical hernia without obstruction and without gangrene Weight loss Home Medications NK 11/18/22 [History Last Taken Unknown] Allergy/AdvReac Type Severity Reaction Status Date / Time No Known Allergies Allergy Verified 11/18/22 17:32 Family History Mother Deepti Gehrig disease Sister Heart disease Myocardial infarction Brother Myocardial infarction Heart disease Father Cancer bone Surgical History History of bilateral cataract extraction History of circumcision History of meniscectomy of right knee History of right inguinal hernia repair (~05/2020) History of vasectomy Social History Smoking Status: Former smoker ROS ROS ED Constitutional Constitutional ED: Denies chills, fever(s) or sweats Eyes Eyes: Denies change in vision ENT ENT ED: Denies dysphagia or sore throat Cardiovascular Cardiovascular: Reports chest pain; Denies leg edema, palpitations or racing heartbeat Respiratory/Chest Respiratory/Chest: Denies cough, dyspnea or dyspnea on exertion Gastrointestinal Gastrointestinal: Denies abdominal pain, diarrhea, nausea or vomiting Genitourinary Genitourinary ED: Denies dysuria, hematuria or urinary frequency Musculoskeletal Musculoskeletal: Denies back pain, extremity pain or neck pain Integumentary Denies rash or wounds Neurologic Neurologic: Denies headache(s), paresthesias or weakness EXAM Physical Exam Const Vital Signs: 11/18/22 17:29 11/18/22 17:53 11/18/22 19:16 Temperature 98.2 F Temperature Source Temporal Pulse Rate 79 61 Respiratory Rate 18 16 Blood Pressure 209/107 H 157/93 H Blood Pressure Mean 141 114 Pulse Ox 99 98 Oxygen Delivery Method Room Air Room Air Room Air 11/18/22 20:00 11/18/22 21:15 Temperature Temperature Source Pulse Rate 68 78 Respiratory Rate 16 16 Blood Pressure 189/84 H 158/84 H Blood Pressure Mean 119 Pulse Ox 98 98 Oxygen Delivery Method Room Air Positive well nourished and well developed General Appearance ED: well developed and NAD HEENT Reports moist mucous membranes normocephalic and atraumatic Eyes PERRL, EOMs intact bilaterally and conjunctivae normal General Eye ED: Yes normal appearance of both eyes Neck no lymphadenopathy and supple General: Negative for tenderness Chest Wall Chest: Negative for tenderness Resp normal respiratory effort and normal air movement Effort and Inspection: symmetric chest movement; Negative for respiratory distress Cardio regular rate, regular rhythm and no murmurs Peripheral Pulses: pulses 2+ throughout GI normal to inspection, nondistended, normoactive bowel sounds and non-tender Palpation: Negative for guarding or rebound tenderness present Back/Spine no CVA tenderness and no thoracic nor lumbar tenderness Extremity normal to inspection General Extremety ED: Negative for edema or tenderness General Extremity: Negative for edema Neuro oriented x3 and no sensory deficits noted Sensorium / Orientation: awake and alert Skin no rashes or lesions noted and no wounds Heart Score History: Slightly/Non-Suspicious ECG: Normal Age: >/= 65 years Risk Factors: 1 or 2 Risk Factors Troponin: </= Normal Limit Score: 3 MDM MDM MDM Narrative Medical decision making narrative: Interventions / MDM: Differential diagnosis: Acute coronary symptoms, chest pain, accelerated hypertension Diagnosis considered but do not suspect: Pericardial effusion, however bedside ultrasound negative My EKG interpretation: Sinus rate of 83, no ST or T wave changes. EKG #2: 1956: Sinus rate of 67, no ST or T wave changes. Unchanged from first EKG. Imaging independently reviewed and interpreted by myself: 2 view chest x-ray: No acute process. External documents reviewed: N/A Test considered but not ordered:N/A ED course: Patient nonspecific symptoms bubbling sensation left chest. Blood pressure is elevated on arrival no sharp severe pain rating to the back, lower concerns for any dissection. EKG no acute process cardiac work-up initiated. Aspirin was ordered. 1720: Initial troponin negative. Bedside ultrasound no pericardial effusion. Blood pressure improved without intervention down to 157/93. Awaiting delta troponin. 79-year-old female with 2000: Reported as well 30 seconds of sharp chest pain resolved repeat EKG unchanged. Delta troponin returns negative. Blood pressure improving down to 158/84 prior to discharge. Reassured. Discharged outpatient follow-up for further testing with strict return precautions. He will call his doctor's office tomorrow. All questions were answered. Re-evaluation: stable Disposition discussed with patient/family/significant other: Patient and significant other Case discussed with consulting clinician: N/A Lab Data Labs: Laboratory Results - last 24 hr 11/18/22 11/18/22 11/18/22 17:32 17:32 20:10 WBC 5.5 RBC 4.22 L Hgb 13.3 Hct 41.0 MCV 97.2 H MCH 31.5 MCHC 32.4 RDW Std Deviation 46.7 H RDW Coeff of Bart 13.0 Plt Count 206 MPV 10.9 Immature Gran % (Auto) 0.200 Neut % (Auto) 53.1 Lymph % (Auto) 35.5 [place] % (Auto) 7.6 Eos % (Auto) 2.9 Baso % (Auto) 0.7 Absolute Neuts (auto) 2.9 Absolute Lymphs (auto) 1.96 Nucleated RBC % 0 Sodium 135 L Potassium 4.2 Chloride 101 Carbon Dioxide 25.0 Anion Gap 9 BUN 12 Creatinine 0.89 Estim Creat Clear Calc 73.87 Est GFR (MDRD) Af Amer 106 Est GFR (MDRD) Non-Af 88 BUN/Creatinine Ratio 13.5 Glucose 100 Calcium 8.7 Troponin I High Sens 6 7 Radiography Diagnostic Testing: Clinical Impression(s) from Imaging Studies Chest X-Ray 11/18/22 17:55 IMPRESSION: No acute radiographic abnormalities. Electronically Signed: Tulio Perera MD at 18:44 EDT , Discharge Plan Triage Chief Complaint: Chest Pain ED Provider: Jason Wilkerson Dx/Rx/DC Orders Clinical Impression: Chest pain, Elevated blood pressure reading without diagnosis of hypertension Instructions: ED Chest Pain, Uncertain Cause Prescriptions: No Action NK Primary Care Provider: Ap Medel Referrals: Ap Medel DO [Primary Care Provider] - 3-5 Days Curtis Mchugh MD [Non-Staff] - Activity Restrictions/Additional Instructions: EKGs and cardiac work-up enzymes x2 negative. Blood pressure was elevated with improving without intervention. Follow-up with your doctor for reevaluation of blood pressure and further testing for chest pain symptoms. Return if worsening symptoms. Disposition Disposition: Home, Self Care Discharge Date/Time: 11/18/22 21:16
[2022-11-18 18:57] LABS: BUN 12 mg/dL (7-18); BUN/Creat Ratio 13.5 RATIO (10-20); Calcium,Total 8.7 mg/dL (8.5-10.1); Chloride 101 mmol/L (98-107); Creatinine, Serum 0.89 mg/dL (0.70-1.30); EST Glomerular Filtration Rate 88 mL/min (>60); Est Glom Filt Rate - Afr Amer 106 mL/min (>60); Estimated Creatinine Clearance 73.87 ml/min; Glucose 100 mg/dL (74-106); Potassium 4.2 mmol/L (3.5-5.1); Sodium Level 135 mmol/L (136-145); Troponin-I HS (w/2H Reflex) 6 pg/mL (3.0-78.0)
[2022-11-18 18:58] LABS: Anion Gap 9 (5-15)
[2022-11-18 19:16] VITALS: BP 157/93; PULSE 61; RESP 16; O2SAT 98
--- NOTE | 2022-11-18 19:40 | EKG12_ITS ---
Test Reason : CP Blood Pressure : / mmHG Vent. Rate : 083 BPM Atrial Rate : 083 BPM P-R Int : 200 ms QRS Dur : 090 ms QT Int : 362 ms P-R-T Axes : 053 044 047 degrees QTc Int : 425 ms Normal sinus rhythm Possible Left atrial enlargement Borderline ECG Confirmed by NORA MARKHAM, LAURA ([id number]), editor greeting card CHALO ELLER ([id number]) on 11/20/2022 9:51:58 AM Referred By: TL Confirmed By:LAURA MELENDEZ MD
[2022-11-18 19:54] LABS: Reflex Troponin-HS? (from REC) Y
[2022-11-18 20:00] VITALS: BP 189/84; PULSE 68; RESP 16; O2SAT 98
[2022-11-18 20:37] LABS: Troponin-I HS 7 pg/mL (3.0-78.0)
[2022-11-18 21:15] VITALS: BP 158/84; PULSE 78; RESP 16; O2SAT 98
== END 2022-11-18 21:16 | disposition home or self-care (01) ==
PROVIDERS: Emergency Provider Emergency Medicine; PCP Preventive Medicine Occupational Medicine; Visit Provider Emergency Medicine
DX: R07.9 Chest pain, unspecified (principal); R03.0 Elevated blood-pressure reading, without diagnosis of hypertension; Z87.891 Personal history of nicotine dependence
CPT/HCPCS: 71045; 80048; 84484; 85025; 93005; 99285; A4216